=== PATIENT | female | born 1965 | race Caucasian/White ===

== ENCOUNTER → 2017-06-18 | Outpatient (CLI) | payer OTHER ==
[~2017-06-18] MED LIST: BENTYL20 MG PO; FLEXERIL10 M1 PO; GABAPENTIN400 MG PO; KLONOPIN1 MG PO; LEVAQUIN PO; OMEPRAZOLE20 M1 PO; PHENERGAN25 M1 PO; PROZAC40 MG PO
--- NOTE | ~2017-06-18 | US84 ---
[id number] [facility] [address] [place], [place] [address] [id number] O MR#: [id number] Acc #: [id number] NAME: DONAVAN DOHERTY : 1965 SEX: F STUDY DATE/TIME: 06/18/2017 15:09 UNIT: [facility] ROOM: STUDY DESCRIPTION: US LE Veins Complete Mike Stdy Attending Physician: Yen Alvarez M.D. Referring Physician: Yen Alvarez M.D. Primary Care Physician: Ngozi Bernal M.D. MEDICAL IMAGING REPORT This report is preliminary unless electronic signature is present EXAM Bilateral lower extremity venous ultrasound HISTORY Bilateral lower extremity pain and swelling for 6 months. TECHNIQUE Venous ultrasound examination of both lower extremities was performed using grayscale, spectral Doppler and color flow Doppler imaging. FINDINGS The examination is negative. There is no evidence of deep venous thrombus from the groin to the lower calf bilaterally. Visualized greater saphenous veins are also patent. IMPRESSION Negative examination. No evidence of lower extremity deep venous thrombosis. Dictated by... Ralf Dos Santos M.D. THIS IS AN ELECTRONICALLY VERIFIED REPORT Ralf Dos Santos M.D. at 06/19/2017 4:28 PM DFL/pcl TD: 06/18/2017 17:14 JOB #: [id number] MEDICAL IMAGING REPORT Page 1 of 1 COPY
== END | disposition home or self-care (01) ==
LOC: CNIV 06-10 15:00
DX: R60.0 Localized edema (principal)
CPT/HCPCS: 93970

== ENCOUNTER → 2017-08-04 | Outpatient (CLI) | payer OTHER ==
[2017-08-04 14:54] LABS: CALCIUM SERUM 9.3 mg/dL (8.4-10.2); CREATININE SERUM 0.8 mg/dL (0.6-1.4)
== END | disposition home or self-care (01) ==
LOC: CECH 12:51
PROVIDERS: Internal Medicine Interventional Cardiology
DX: I51.9 Heart disease, unspecified (principal); I36.1 Nonrheumatic tricuspid (valve) insufficiency; I34.0 Nonrheumatic mitral (valve) insufficiency
CPT/HCPCS: 80048; 93306